=== PATIENT | male | born 1985 | race Caucasian/White ===

== ENCOUNTER 2020-02-21 13:54 | Outpatient (CLI) | payer MEDICAID ==
[2020-02-21] MEDS ORDERED: OMNIPAQUE 300 MG/ML, 10ML VIAL ONE (14:00)
[2020-02-21] MEDS ORDERED: ROPivacaine/PF 0.2%, 10 ML ONE ×2 (14:14→15:06)
[2020-02-21] MEDS ORDERED: LIDOCAINE-MPF 1%, 5ML ONE (14:14)
== END 2020-02-21 23:59 | disposition home or self-care (01) ==
LOC: RAD 13:54
PROVIDERS: ATTEND Orthopaedic Surgery
DX: M25.452 Effusion, left hip (principal)
CPT/HCPCS: 20610; 77002; 87015; 87070; 87075; 87102; 87116; 87205; 87206; 89051; 89060; J2795; Q9967